=== PATIENT | female | born 1985 | race Caucasian/White ===

== ENCOUNTER 2016-10-08 10:18 | Outpatient (RCR) | payer OTHER ==
--- OUTSIDE RECORDS SUMMARY | 2016-10-08 13:28 | XMS REPORT | Continuity of Care Document ---
Author Author [facility] Address Unknown Phone Unavailable Allergies Medications Problems Date Dx Coded Attending Type Code Diagnosis Diagnosed By 11/30/2012 V74.1 TB SCREENING 11/30/2012 AMADOR ARANGO DO V74.1 TB SCREENING 05/13/2013 AMADOR ARANGO DO 244.9 HYPOTHYROIDISM, SUBCLINICAL 05/13/2013 AMADOR ARANGO DO 338.29 PAIN - CHRONIC 05/13/2013 AMADOR ARANGO DO 425.4 OTHER PRIMARY CARDIOMYOPATHIES 10/26/2015 STEPHANIE SCHULTE MD Ot I42.9 10/26/2015 STEPHANIE SCHULTE MD Ot R06.00 10/26/2015 STEPHANIE SCHULTE MD Ot R07.9 10/26/2015 STEPHANIE SCHULTE MD Ot R60.9 10/02/2016 STEPHANIE SCHULTE MD Ot I42.9 CARDIOMYOPATHY, UNSPECIFIED 10/02/2016 STEPHANIE SCHULTE MD Ot R06.00 DYSPNEA, UNSPECIFIED 10/02/2016 STEPHANIE SCHULTE MD Ot R07.9 CHEST PAIN, UNSPECIFIED 10/02/2016 STEPHANIE SCHULTE MD Ot R60.9 EDEMA, UNSPECIFIED Procedures Code [place] [address] TB TEST INTRADERMAL 11/30/2012 78918 ROUTINE VENIPUNCTURE 05/13/2013 57972 T4 FREE 2012 37997 TSH 05/13/2013 Results Encounters ACCT No. Visit Date/Time Discharge Status Pt. Type Provider Facility Loc./Unit Complaint [id number] 05/13/2013 11:05:00 05/13/2013 23: 59:59 CLS Outpatient AMADOR ARANGO DO [id number] 11/30/2012 13:51:00 Document Registration
== END 2017-01-06 | disposition home or self-care (01) ==
LOC: CARD 10:18
PROVIDERS: ATTEND Internal Medicine Cardiovascular Disease
DX: R07.9 Chest pain, unspecified (principal)
CPT/HCPCS: 93225; 93226

== ENCOUNTER 2017-09-16 11:47 | Emergency (ER) | payer SELFPAY ==
[~2017-09-16] VITALS: Ht 154.9 cm; Wt 77.1 kg
--- OUTSIDE RECORDS SUMMARY | 2017-09-16 11:52 | XMS REPORT ---
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
--- OUTSIDE RECORDS SUMMARY | 2017-09-16 11:52 | XMS REPORT ---
Author Author LAVERN ROBLERO Organization [facility] Address [address] [place] [address] Care Team Providers Care Bacteriologist Fishery Name Role Phone LAVERN ROBLERO Unavailable PROBLEMS Type Condition ICD9-CM Code [id number] Code Onset Dates Condition Status SNOMED Code Problem Post menopausal syndrome N95.1 Active 906154444 Problem Irregular heart rhythm I49.9 Active 822932774 Problem Encounter to establish care with new doctor Z71.89 Active 881318983 Problem Vitamin D deficiency E55.9 Active 04761449 Problem Second degree Mobitz I AV block I44.1 Active 60810217 Problem Dilated cardiomyopathy I42.0 Active 739019199 Problem Acquired hypothyroidism E03.9 Active 649392653 Problem Obesity (BMI 30.0-34.9) E66.9 Active 619280329984853 Problem Tobacco abuse counseling Z71.6 Active 647393629 Problem Tobacco abuse Z72.0 Active 952982301 ALLERGIES Substance Reaction Event Type Date Status Latex hives Drug Allergy Sep, Active SOCIAL HISTORY Never Assessed PLAN OF CARE Activity Details Follow Up 4 Weeks Reason:f/u labs/thyroid VITAL SIGNS Height 61 in 2016-09-26 Weight 179.0 lbs 2016-09-26 Temperature 97.4 degrees Fahrenheit 2016-09-26 Heart Rate 84 bpm 2016-09-26 Respiratory Rate 20 2016-09-26 BMI 33.82 kg/m2 2016-09-26 Blood pressure systolic 100 mmHg 2016-09-26 Blood pressure diastolic 72 mmHg 2016-09-26 MEDICATIONS No Known Medications RESULTS No Results PROCEDURES Procedure Date Ordered Result Body Site EKG, TRACING (IN-HOUSE) 2016-09-26 N/A ELECTROCARDIOGRAM, TRACING Sep 26, 2016 IMMUNIZATIONS No Known Immunizations MEDICAL (GENERAL) HISTORY Type Description Date Medical History Hypothyroidism Medical History degenerative disease lumbosacral spine Medical History osteoarthritis Medical History cardiomyopathy Medical History borderline diabetes Medical History Endometriosis-had total hysterectomy Medical History ADHD Medical History per echo on 04/2011--- mild mitral/ trivial tricuspid insufficiency- EF 40 % Surgical History total hysterectomy 06/2011 Surgical History section Surgical History Cholecystectomy Hospitalization History Surgery(s)/Childbirth(s) only
--- OUTSIDE RECORDS SUMMARY | 2017-09-16 11:53 | XMS REPORT ---
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 Problem Screening examination for pulmonary tuberculosis V74.1 Active Problem Hypothyroidism E03.9 Active Problem Other primary cardiomyopathies 425.4 Active Assessment Hypothyroidism E03.9 Active Problem Other chronic pain 338.29 Active Problem Unspecified hypothyroidism 244.9 Active Medications Medication Code System Code Instructions Start Date End Date Status Dosage Augmentin [facility] [address]-83 875-125 MG Orally every 12 hrs Aug 16, 2015 Aug 26, 2015 1 tablet Estradiol [facility] [address]-13 2 MG Orally Once a day Apr 10, 2015 1 tablet Levothyroxine Sodium [facility] [address]-86 50 MCG Orally Once a day Aug 16, 2015 1 tablet Procedures Procedure Coding System Code Date Office Visit, Est Pt., Level 3 CPT-4 51285 Aug 16, 2015 Vital Signs Date/Time: Aug 16, 2015 Temperature 97.9 F Weight 164.0 lbs Height 61 in BMI 30.98 Index Blood Pressure Diastolic 78 mmHg Blood Pressure Systolic 120 mmHg Cardiac Monitoring Heart Rate 72 bpm Results No Known Results Summary Purpose eClinicalWorks Submission
--- OUTSIDE RECORDS SUMMARY | 2017-09-16 11:53 | XMS REPORT ---
Author Author LAVERN ROBLERO Organization [facility] Address [address] [place] [address] Care Team Providers Care In Store Representative Name Role Phone OSBALDOSOLAVERN Unavailable PROBLEMS Type Condition ICD9-CM Code BRC96-CD Code Onset Dates Condition Status SNOMED Code Problem Post menopausal syndrome N95.1 Active 815041743 Problem Irregular heart rhythm I49.9 Active 307063843 Problem Encounter to establish care with new doctor Z71.89 Active 469391646 Problem Vitamin D deficiency E55.9 Active 42860532 Problem Second degree Mobitz I AV block I44.1 Active 74709102 Problem Dilated cardiomyopathy I42.0 Active 908616353 Problem Acquired hypothyroidism E03.9 Active 791407578 Problem Obesity (BMI 30.0-34.9) E66.9 Active 188762266291091 Problem Tobacco abuse counseling Z71.6 Active 715385792 Problem Tobacco abuse Z72.0 Active 063616364 ALLERGIES No Information SOCIAL HISTORY Never Assessed PLAN OF CARE VITAL SIGNS MEDICATIONS Medication Instructions Dosage Frequency Start Date End Date Duration Status Levothyroxine Sodium 25 MCG Orally Once a day 1 tablet 24h 30 Jul, 2015 30 days Active RESULTS No Results PROCEDURES No Known procedures IMMUNIZATIONS No Known Immunizations MEDICAL (GENERAL) HISTORY [...]
--- OUTSIDE RECORDS SUMMARY | 2017-09-16 11:53 | XMS REPORT | Continuity of Care Document ---
Author Author [facility] Address Unknown Phone Unavailable Allergies There is no data. Medications There is no data. Problems Date Dx Coded Attending Type Code [...] STEPHANIE SCHULTE MD Ot R60.9 EDEMA, UNSPECIFIED 10/09/2016 STEPHANIE SCHULTE MD Ot R07.9 CHEST PAIN, UNSPECIFIED 10/09/2016 STEPHANIE SCHULTE MD Ot R07.9 CHEST PAIN, UNSPECIFIED 10/10/2016 STEPHANIE SCHULTE MD Ot I42.9 CARDIOMYOPATHY, UNSPECIFIED 10/10/2016 STEPHANIE SCHULTE MD Ot R06.00 DYSPNEA, UNSPECIFIED 10/10/2016 STEPHANIE SCHULTE MD Ot R07.9 CHEST PAIN, UNSPECIFIED 10/10/2016 STEPHANIE SCHULTE MD Ot R60.9 EDEMA, UNSPECIFIED 10/10/2016 STEPHANIE SCHULTE MD Ot R07.9 CHEST PAIN, UNSPECIFIED 10/10/2016 STEPHANIE SCHULTE MD Ot R07.9 CHEST PAIN, UNSPECIFIED 10/10/2016 STEPHANIE SCHULTE MD Ot I42.9 CARDIOMYOPATHY, UNSPECIFIED 10/10/2016 STEPHANIE SCHULTE MD Ot R06.00 DYSPNEA, UNSPECIFIED 10/10/2016 STEPHANIE SCHULTE MD Ot R07.9 CHEST PAIN, UNSPECIFIED 10/10/2016 STEPHANIE SCHULTE MD Ot R60.9 EDEMA, UNSPECIFIED 11/07/2016 STEPHANIE SCHULTE MD Ot I42.9 CARDIOMYOPATHY, UNSPECIFIED 11/07/2016 STEPHANIE SCHULTE MD Ot R06.00 DYSPNEA, UNSPECIFIED 11/07/2016 STEPHANIE SCHULTE MD Ot R07.9 CHEST PAIN, UNSPECIFIED 11/07/2016 STEPHANIE SCHULTE MD Ot R60.9 EDEMA, UNSPECIFIED 11/07/2016 STEPHANIE SCHULTE MD Ot R07.9 CHEST PAIN, UNSPECIFIED 01/06/2017 STEPHANIE SCHULTE MD Ot R07.9 CHEST PAIN, UNSPECIFIED Procedures Code [place] [address] TB TEST INTRADERMAL 11/30/2012 07975 ROUTINE VENIPUNCTURE 05/13/2013 78650 T4 FREE 05/13/2013 08101 TSH 05/13/2013 Results There is no data. Encounters ACCT No. Visit Date/Time Discharge Status Pt. Type Provider Facility Loc./Unit Complaint [id number] 05/13/2013 11:05:00 05/13/2013 23:59:59 CLS Outpatient ARANGO AMADOR SMITH [id number] 11/30/2012 13:51:00 Document Registration [id number] 01/07/2017 10:00:00 01/07/2017 23:59:59 CLS Preadmit STEPHANIE SCHULTE MD [facility] CARD CHEST PAIN,PALPITATIONS [id number] 10/08/2016 10:18:00 01/06/2017 00:01:00 DIS Outpatient STEPHANIE SCHULTE MD [facility] CARD CHEST PAIN,PALPITATIONS [id number] 10/25/2015 08:42:00 10/25/2015 23:59:59 CLS Outpatient STEPHANIE SCHULTE MD [facility] CARD CARDIOMYOPATHY,DYSPNEA, CHEST PAIN
--- OUTSIDE RECORDS SUMMARY | 2017-09-16 11:53 | XMS REPORT ---
Author Author OSBALDO LAVERN Organization [facility] Address [address] [place] [address] Care Team Providers Care Office Correspondent Name Role Phone ROBLEROLAVERN Conroy Unavailable PROBLEMS Type Condition ICD9-CM Code LJJ95-AA Code Onset Dates Condition Status SNOMED Code Problem Post menopausal syndrome N95.1 Active 233247850 Problem Irregular heart rhythm I49.9 Active 539617274 Problem Encounter to establish care with new doctor Z71.89 Active 790862216 Problem Vitamin D deficiency E55.9 Active 57675856 Problem Second degree Mobitz I AV block I44.1 Active 02926442 Problem Dilated cardiomyopathy I42.0 Active 108548506 Problem Acquired hypothyroidism E03.9 Active 302308154 Problem Obesity (BMI 30.0-34.9) E66.9 Active 198629768081693 Problem Tobacco abuse counseling Z71.6 Active 698135267 Problem Tobacco abuse Z72.0 Active 720248161 ALLERGIES No Information SOCIAL HISTORY Never Assessed PLAN OF CARE VITAL SIGNS MEDICATIONS No Known Medications RESULTS Name Result Date Reference Range TSH 2016-12-26 TSH 4.900 0.450-4.500 PROCEDURES Procedure Date Ordered Result Body Site ASSAY THYROID STIM HORMONE December 26, 2016 VENIPUNCT, ROUTINE* December 26, 2016 IMMUNIZATIONS No Known Immunizations MEDICAL [...]
--- OUTSIDE RECORDS SUMMARY | 2017-09-16 11:53 | XMS REPORT ---
Author Author LAVERN ROBLERO Organization [facility] Address [address] [place] [address] Care Team Providers Care Local Area Network Systems Adminstrator Name Role Phone ROBLEROLAVERN Conroy Unavailable PROBLEMS Type Condition ICD9-CM Code EIG96-KV Code Onset Dates Condition Status SNOMED Code Problem Post menopausal syndrome N95.1 Active 523097432 Problem Irregular heart rhythm I49.9 Active 684892465 Problem Encounter to establish care with new doctor Z71.89 Active 595023639 Problem Vitamin D deficiency E55.9 Active 51836185 Problem Second degree Mobitz I AV block I44.1 Active 96621268 Problem Dilated cardiomyopathy I42.0 Active 425364764 Problem Acquired hypothyroidism E03.9 Active 287198933 Problem Obesity (BMI 30.0-34.9) E66.9 Active 112447121954968 Problem Tobacco abuse counseling Z71.6 Active 985182473 Problem Tobacco abuse Z72.0 Active 733003618 ALLERGIES No Information SOCIAL HISTORY Never Assessed PLAN OF CARE VITAL SIGNS MEDICATIONS No Known Medications RESULTS Name Result Date Reference Range TSH 2016-10-08 TSH 6.520 0.450-4.500 PROCEDURES Procedure Date Ordered Result Body Site ASSAY THYROID STIM HORMONE Oct 08, 2016 VENIPUNCT, ROUTINE* Oct 08, 2016 IMMUNIZATIONS No Known Immunizations MEDICAL (GENERAL) [...]
--- OUTSIDE RECORDS SUMMARY | 2017-09-16 11:53 | XMS REPORT ---
Author Author KERWIN GUILLEN [facility] eClinicalWorks Address Unknown Phone Unavailable Care Team Providers Care Rf Manager Name Role Phone KERWIN GUILLEN Unavailable Allergies No Known Allergies Problems Problem Type Condition ICD-9 Code Onset Dates Condition Status Problem Other chronic pain 338.29 Active Problem Unspecified hypothyroidism 244.9 Active Problem Screening examination for pulmonary tuberculosis V74.1 Active Problem Other primary cardiomyopathies 425.4 Active Medications Medication Code System Code Instructions Start Date End Date Status Dosage Levothyroxine Sodium [facility] [address]-04 100 MCG Orally Once a day 1 tablet Results No Known Results Summary Purpose eClinicalWorks Submission
--- OUTSIDE RECORDS SUMMARY | 2017-09-16 11:53 | XMS REPORT ---
Author Author LAVERN ROBLERO Organization [facility] Address [address] [place] [address] Care Team Providers Care Battery Container Finishing Hand Name Role Phone ROBLEROSO ConroyELE Unavailable PROBLEMS Type Condition ICD9-CM Code YEH64-UL Code Onset Dates Condition Status SNOMED Code Problem Post menopausal syndrome N95.1 Active 769239494 Problem Irregular heart rhythm I49.9 Active 074398671 Problem Encounter to establish care with new doctor Z71.89 Active 688926164 Problem Vitamin D deficiency E55.9 Active 15482363 Problem Second degree Mobitz I AV block I44.1 Active 86132230 Problem Dilated cardiomyopathy I42.0 Active 086405663 Problem Acquired hypothyroidism E03.9 Active 104656326 Problem Obesity (BMI 30.0-34.9) E66.9 Active 143137662558759 Problem Tobacco abuse counseling Z71.6 Active 416728530 Problem Tobacco abuse Z72.0 Active 607995176 ALLERGIES No Information SOCIAL HISTORY Never Assessed PLAN OF CARE VITAL SIGNS MEDICATIONS Medication Instructions Dosage Frequency Start Date End Date Duration Status Ergocalciferol 45189 UNIT Orally once weekly 1 capsule Sep, December, 12 weeks Active RESULTS No Results PROCEDURES No Known [...]
--- OUTSIDE RECORDS SUMMARY | 2017-09-16 11:53 | XMS REPORT ---
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 Active Assessment Hormone replacement therapy (HRT) V07.4 Active Problem Screening examination for pulmonary tuberculosis V74.1 Active Problem Other chronic pain 338.29 Active Problem Artificial menopause state 627.4 Active Assessment Routine gynecological examination V72.31 Active Assessment Breast cancer screening V76.10 Active Problem Unspecified hypothyroidism 244.9 Active Problem Other primary cardiomyopathies 425.4 Active Medications Medication Code System Code Instructions Start Date End Date Status Dosage Estradiol [facility] [address]-83 2 MG Orally Once a day Apr 10, 2015 1 tablet Levothyroxine Sodium [facility] [address]-72 100 MCG Orally Once a day 1 tablet Procedures Procedure Coding System Code Date Preventive Care Est Pt. Age 18-39 CPT-4 90927 Apr 10, 2015 Vital Signs Date/Time: Apr 10, 2015 Temperature 97.8 F Weight 175.2 lbs Height 61 in BMI 33.10 Index Blood Pressure Diastolic 74 mmHg Blood Pressure Systolic 116 mmHg Cardiac Monitoring Heart Rate 70 bpm Results No Known Results Summary Purpose eClinicalWorks Submission
--- OUTSIDE RECORDS SUMMARY | 2017-09-16 11:53 | XMS REPORT ---
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 Assessment Abdominal pain, right upper quadrant 789.01 Active Problem Unspecified hypothyroidism 244.9 Active Problem Other primary cardiomyopathies 425.4 Active Medications Medication Code System Code Instructions Start Date End Date Status Dosage Estradiol [facility] [place] [address]-03 2 MG Orally Once a day Apr 10, 2015 1 tablet Levothyroxine Sodium [facility] [place] [address]-90 100 MCG Orally Once a day 1 tablet Procedures Procedure Coding System Code Date URINALYSIS, AUTO, W/O SCOPE CPT-4 76456 Apr 27, 2015 Office Visit, Est Pt., Level 3 CPT-4 19405 Apr 27, 2015 MEASURE BLOOD OXYGEN LEVEL CPT-4 39837 Apr 27, 2015 Vital Signs Date/Time: Apr 27, 2015 Temperature 98.2 F Weight 172.2 lbs Height 61 in Oximetry 97 % Blood Pressure Diastolic 68 mmHg Blood Pressure Systolic 98 mmHg Cardiac Monitoring Heart Rate 88 bpm BMI 32.53 Index Pain Scale 7-8 1-10 Results Name Result Date Reference Range Unit Abnormality Flag UA W/CULTURE IF INDICATED (IN HOUSE) Summary Purpose eClinicalWorks Submission
--- OUTSIDE RECORDS SUMMARY | 2017-09-16 11:53 | XMS REPORT ---
Author Author AMADOR ARANGO [facility] eClinicalWorks Address Unknown Phone Unavailable Care Team Providers Care Sliver Chopper Name Role Phone AMADOR ARANGO CP Unavailable Allergies No Known Allergies Problems Problem Type Condition Code Onset Dates Condition Status Problem Screening examination for pulmonary tuberculosis V74.1 Active Problem Other chronic pain 338.29 Active Problem Artificial menopause state 627.4 Active Problem Unspecified hypothyroidism 244.9 Active Problem Other primary cardiomyopathies 425.4 Active Medications No Known Medications Results No Known Results Summary Purpose eClinicalWorks Submission
--- OUTSIDE RECORDS SUMMARY | 2017-09-16 11:53 | XMS REPORT ---
Author Author KERWIN GUILLEN [facility] eClinicalWorks Address Unknown Phone Unavailable Care Team Providers Care Manager Trading Name Role Phone KERWIN GUILLEN CP Unavailable [...] Medications Procedures Procedure Coding System Code Date Office Visit, Est Pt., Level 3 CPT-4 25630 Apr 07, 2015 Vital Signs Date/Time: Apr 07, 2015 Temperature 97.0 F Weight 175.8 lbs Height 61 in BMI 33.21 Index Blood Pressure Diastolic 70 mmHg Blood Pressure Systolic 118 mmHg Cardiac Monitoring Heart Rate 72 bpm Results No Known Results Summary Purpose eClinicalWorks Submission
--- OUTSIDE RECORDS SUMMARY | 2017-09-16 11:53 | XMS REPORT ---
Author Author OSBALDOSOLAVERN Organization [facility] Address [address] [place] [address] Care Team Providers Care Fuller Brush Man Name Role Phone ROBLEROSO ConroyELE Unavailable PROBLEMS Type Condition ICD9-CM Code RCJ28-YK Code Onset Dates Condition Status SNOMED Code Problem Post menopausal syndrome N95.1 Active 931320273 Problem Irregular heart rhythm I49.9 Active 570034332 Problem Encounter to establish care with new doctor Z71.89 Active 047676591 Problem Vitamin D deficiency E55.9 Active 90980211 Problem Second degree Mobitz I AV block I44.1 Active 46544815 Problem Dilated cardiomyopathy I42.0 Active 506265666 Problem Acquired hypothyroidism E03.9 Active 450696976 Problem Obesity (BMI 30.0-34.9) E66.9 Active 349220960081288 Problem Tobacco abuse counseling Z71.6 Active 222837296 Problem Tobacco abuse Z72.0 Active 615306764 ALLERGIES No Information SOCIAL HISTORY Never Assessed PLAN OF CARE VITAL SIGNS MEDICATIONS No Known Medications RESULTS Name Result Date Reference Range THYROID ANALYZER 2016-09-27 TSH 7.120 0.450-4.500 T4,Free (Direct) 1.01 0.82-1.77 Thyroid Peroxidase (TPO) Ab 274 0-34 Interpretive Comment A1C 2016-09-27 Hemoglobin A1c 5.2 4.8-5.6 MAGNESIUM, SERUM 2016-09-27 Magnesium, Serum 2.0 1.6-2.3 CBC 2016-09-27 WBC 5.3 3.4-10.8 RBC 4.11 3.77-5.28 Hemoglobin 12.4 11.1-15.9 Hematocrit 35.6 34.0-46.6 MCV 87 79-97 MCH 30.2 26.6-33.0 MCHC 34.8 31.5-35.7 RDW 14.2 12.3-15.4 Platelets 322 150-379 Neutrophils 50 Lymphs 40 Monocytes 7 Eos 2 Basos 1 Neutrophils (Absolute) 2.7 1.4-7.0 Lymphs (Absolute) 2.1 0.7-3.1 Monocytes(Absolute) 0.4 0.1-0.9 Eos (Absolute) 0.1 0.0-0.4 Baso (Absolute) 0.0 0.0-0.2 Immature Granulocytes 0 Immature Grans (Abs) 0.0 0.0-0.1 VITAMIN D, 25-H 2016-09-27 Vitamin D, 25-Hydroxy 14.9 30.0-100.0 LIPID PANEL 2016-09-27 Cholesterol, Total 153 100-199 Triglycerides 69 0-149 HDL Cholesterol 60 >39 VLDL Cholesterol Olaf 14 5-40 LDL Cholesterol Calc 79 0-99 CMP 2016-09-27 Glucose, Serum 93 65-99 BUN 10 6-20 Creatinine, Serum 0.88 0.57-1.00 eGFR If NonAfricn Am 88 >59 eGFR If Africn Am 102 >59 BUN/Creatinine Ratio 11 8-20 Sodium, Serum 140 134-144 Potassium, Serum 4.2 3.5-5.2 Chloride, Serum 99 96-106 Carbon Dioxide, Total 25 18-29 Calcium, Serum 9.6 8.7-10.2 Protein, Total, Serum 7.4 6.0-8.5 Albumin, Serum 4.4 3.5-5.5 Globulin, Total 3.0 1.5-4.5 A/G Ratio 1.5 1.1-2.5 Bilirubin, Total 0.7 0.0-1.2 Alkaline Phosphatase, S 110 39-117 AST (SGOT) 20 0-40 ALT (SGPT) 18 0-32 PROCEDURES Procedure Date Ordered Result Body Site ASSAY THYROID STIM HORMONE Sep 27, 2016 GLYCATED HEMOGLOBIN TEST Sep 27, 2016 VENIPUNCT, ROUTINE* Sep 27, 2016 COMPREHEN METABOLIC PANEL Sep 27, 2016 COMPLETE CBC W/AUTO DIFF WBC Sep 27, 2016 ASSAY OF MAGNESIUM Sep 27, 2016 LIPID PANEL Sep 27, 2016 ASSAY OF VITAMIN D Sep 27, 2016 IMMUNIZATIONS No Known Immunizations MEDICAL (GENERAL) [...]
--- OUTSIDE RECORDS SUMMARY | 2017-09-16 11:53 | XMS REPORT ---
Author Author STEPHANIE SCHULTE Organization [facility] Address [address] [place] [address] Care Team Providers Care Software Manager Name Role Phone MAGDIEL SCHULTEPEPITO Unavailable PROBLEMS Type Condition ICD9-CM Code HOH08-QJ Code Onset Dates Condition Status SNOMED Code Problem Post menopausal syndrome N95.1 Active 703297222 Problem Irregular heart rhythm I49.9 Active 282526788 Problem Encounter to establish care with new doctor Z71.89 Active 292655049 Problem Vitamin D deficiency E55.9 Active 32816026 Problem Second degree Mobitz I AV block I44.1 Active 76013212 Problem Dilated cardiomyopathy I42.0 Active 595970758 Problem Acquired hypothyroidism E03.9 Active 734799075 Problem Obesity (BMI 30.0-34.9) E66.9 Active 901169244934210 Problem Tobacco abuse counseling Z71.6 Active 081888139 Problem Tobacco abuse Z72.0 Active 549346222 ALLERGIES No Information SOCIAL HISTORY Never Assessed PLAN OF CARE Activity Details Follow Up 4 Weeks Reason: VITAL SIGNS Height 61 in 2016-09-27 Weight 176 lbs 2016-09-27 Heart Rate 70 bpm 2016-09-27 Respiratory Rate 24 2016-09-27 BMI 33.25 kg/m2 2016-09-27 Blood pressure systolic 102 mmHg 2016-09-27 Blood pressure diastolic 70 mmHg 2016-09-27 MEDICATIONS No Known Medications RESULTS No Results PROCEDURES Procedure Date Ordered Result Body Site HOLTER MONITOR (OUTPATIENT) 2016-09-27 N/A IMMUNIZATIONS No Known Immunizations MEDICAL (GENERAL) HISTORY [...]
--- OUTSIDE RECORDS SUMMARY | 2017-09-16 11:53 | XMS REPORT ---
Author Author LAVERN ROBLERO Organization [facility] Address [address] [place] [address] Care Team Providers Care Expressive Therapist Name Role Phone OSBALDOSOLAVERN Unavailable PROBLEMS Type Condition ICD9-CM Code ATZ40-EW Code Onset Dates Condition Status SNOMED Code Problem Post menopausal syndrome N95.1 Active 317105790 Problem Irregular heart rhythm I49.9 Active 996773179 Problem Encounter to establish care with new doctor Z71.89 Active 627768689 Problem Vitamin D deficiency E55.9 Active 91474735 Problem Second degree Mobitz I AV block I44.1 Active 99747708 Problem Dilated cardiomyopathy I42.0 Active 218366215 Problem Acquired hypothyroidism E03.9 Active 759817213 Problem Obesity (BMI 30.0-34.9) E66.9 Active 337568767649629 Problem Tobacco abuse counseling Z71.6 Active 258727000 Problem Tobacco abuse Z72.0 Active 510886238 ALLERGIES No Information SOCIAL HISTORY Never Assessed [...]
--- OUTSIDE RECORDS SUMMARY | 2017-09-16 11:53 | XMS REPORT ---
Author Author KERWIN GUILLEN Organization [employer] Address Unknown Phone Unavailable Care Team Providers Care Dope Maintenance Worker Name Role Phone KERWIN GUILLEN Unavailable Allergies [...]
--- OUTSIDE RECORDS SUMMARY | 2017-09-16 11:53 | XMS REPORT ---
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 Medications No Known Medications Procedures Procedure Coding System Code Date COMPREHEN METABOLIC PANEL CPT-4 57278 Apr 04, 2015 LIPID PANEL CPT-4 66416 Apr 04, 2015 COMPLETE CBC W/AUTO DIFF WBC CPT-4 73585 Apr 04, 2015 ELECTROCARDIOGRAM, TRACING CPT-4 18358 Apr 04, 2015 ASSAY OF FREE THYROXINE CPT-4 20548 Apr 04, 2015 ASSAY THYROID STIM HORMONE CPT-4 73551 Apr 04, 2015 VENIPUNCT, ROUTINE* CPT-4 57713 Apr 04, 2015 ASSAY OF MAGNESIUM CPT-4 57058 Apr 04, 2015 Results Name Result Date Reference Range Unit Abnormality Flag TSH W/ FREE T4 ROUTINE VENIPUNCTURE MAGNESIUM, SERUM Summary Purpose [employer] Submission
[2017-09-16 12:14] LABS: BASOPHILS # (AUTO) 0.1 10^3/uL (0.0-0.1); BASOPHILS % (AUTO) 1 % (0-10); EOSINOPHILS # (AUTO) 0.3 10^3/uL (0.0-0.3); EOSINOPHILS % (AUTO) 5 % (0-10); HEMATOCRIT 38 % (35-52); HEMOGLOBIN 12.9 G/DL (11.5-16.0); LYMPHOCYTES # (AUTO) 1.9 X 10^3 (1.0-4.0); LYMPHOCYTES % (AUTO) 30 % (12-44); MEAN CORPUSCULAR HEMOGLOBIN 30 PG (25-34); MEAN CORPUSCULAR HGB CONC 34 G/DL (32-36); MEAN CORPUSCULAR VOLUME 89 FL (80-99); MEAN PLATELET VOLUME 10.3 FL (7.4-10.4); MONOCYTES # (AUTO) 0.6 X 10^3 (0.0-1.0); MONOCYTES % (AUTO) 9 % (0-12); NEUTROPHILS # (AUTO) 3.4 X 10^3 (1.8-7.8); NEUTROPHILS % (AUTO) 55 % (42-75); PLATELET COUNT 264 10^3/uL (130-400); RED BLOOD COUNT 4.27 10^6/uL (4.35-5.85); RED CELL DISTRIBUTION WIDTH 13.7 % (10.0-14.5); WHITE BLOOD COUNT 6.2 10^3/uL (4.3-11.0)
--- NOTE | 2017-09-16 12:29 | ED Chest Pain ---
General Chief Complaint: Chest Wall/Rib Pain Stated Complaint: CP,RIGHT ARM PAIN,BACK PAIN,NAUSEA Nursing Triage Note: Pt c/o R sided chest pain that started last night. Pt states pain is worse w/ movement or taking a deep breath. Pt also reports pain in her R shoulder that radiates across back. Nursing Sepsis Screen: No Definite Risk Source: patient Exam Limitations: no limitations History of Present Illness Date Seen by Provider: Sep 16, 2017 Time Seen by Provider: 12:27 Initial Comments To ER with right-sided chest pain, right arm, back pain, nausea. This began last night while she was sitting on the couch. Pain gets worse "my blood pressure goes up" and when she moves or deep breathes. No cough. Timing/Duration: 24 hours Severity/Quality: moderate Activities at Onset: none, rest ASA po DESKTOP MANAGER: No NTG SL DESKTOP MANAGER: No Allergies and Home Medications Allergies Coded Allergies: No Known Drug Allergies (Unverified , 09/16/17) Home Medications Unable to Obtain Active Prescriptions or Reported Meds Review of Systems Constitutional: see HPI, No chills EENTM: No Symptoms Reported Respiratory: No Symptoms Reported Cardiovascular: See HPI, Chest Pain, Denies Edema, Denies Irregular Heart Rate , Denies Lightheadedness, Denies Palpitations, Denies Syncope Gastrointestinal: No Symptoms Reported Genitourinary: No Symptoms Reported Musculoskeletal: no symptoms reported Skin: no symptoms reported Psychiatric/Neurological: No Symptoms Reported Endocrine: No Symptoms Reported Hematologic/Lymphatic: No Symptoms Reported Past Sncszsv-Ayktpg-Ampvgd Hx Patient Social History Alcohol Use: Denies Use Recreational Drug Use: No Smoking Status: Former Smoker Former Smoker, Quit: Jun 18, 2017 Recent Foreign Travel: No Contact w/Someone Who Travel: No Recent Infectious Disease Expo: No Recent Hopitalizations: No Seasonal Allergies Seasonal Allergies: No Surgeries History of Surgeries: Yes Surgeries: Section, Gallbladder, Hysterectomy Respiratory History of Respiratory Disorde: No Cardiovascular History of Cardiac Disorders: Yes (TACHYCARDIA) Neurological History of Neurological Disord: No Genitourinary History of Genitourinary Disor: No Gastrointestinal History of Gastrointestinal Di: No Musculoskeletal History of Musculoskeletal Dis: No Endocrine History of Endocrine Disorders: Yes Endocrine Disorders: Hypothyroidsim HEENT History of HEENT Disorders: No Cancer History of Cancer: No Psychosocial History of Psychiatric Problem: No Integumentary History of Skin or Integumenta: No Blood Transfusions History of Blood Disorders: No Physical Exam Vital Signs Vital Sign - Last 12Hours 09/16/17 11:50 Temp 98.0 Pulse 78 Resp 18 B/P (MAP) 119/87 (98) Pulse Ox 100 O2 Delivery Room Air Capillary Refill : Less Than 3 Seconds General Appearance: No Apparent Distress, WD/WN HEENT: PERRL/EOMI, TMs Normal Neck: Full Range of Motion, Normal Inspection Respiratory: No Accessory Muscle Use, No Respiratory Distress Cardiovascular: Regular Rate, Rhythm, Normal Peripheral Pulses, Other (heart rate 89 sinus without ectopy, blood pressure 119/82, oxygen saturation 100% on room air) Gastrointestinal: Normal Bowel Sounds, Non Tender, Soft Extremity: Normal Capillary Refill, Normal Inspection Neurologic/Psychiatric: Alert, Oriented x3, No Motor/Sensory Deficits Skin: Normal Color, Warm/Dry Progress/Results/Core Measures Results/Orders Lab Results Laboratory Tests Test 09/16/17 12:05 Range/Units White Blood Count 6.2 4.3-11.0 10^3/uL Red Blood Count 4.27 L 4.35-5.85 10^6/uL Hemoglobin 12.9 11.5-16.0 G/DL Hematocrit 38 35-52 % Mean Corpuscular Volume 89 80-99 FL Mean Corpuscular Hemoglobin 30 25-34 PG Mean Corpuscular Hemoglobin Concent 34 32-36 G/DL Red Cell Distribution Width 13.7 10.0-14.5 % Platelet Count 264 130-400 10^3/uL Mean Platelet Volume 10.3 7.4-10.4 FL Neutrophils (%) (Auto) 55 42-75 % Lymphocytes (%) (Auto) 30 12-44 % Monocytes (%) (Auto) 9 0-12 % Eosinophils (%) (Auto) 5 0-10 % Basophils (%) (Auto) 1 0-10 % Neutrophils # (Auto) 3.4 1.8-7.8 X 10^3 Lymphocytes # (Auto) 1.9 1.0-4.0 X 10^3 Monocytes # (Auto) 0.6 0.0-1.0 X 10^3 Eosinophils # (Auto) 0.3 0.0-0.3 10^3/uL Basophils # (Auto) 0.1 0.0-0.1 10^3/uL Sodium Level 138 135-145 MMOL/L Potassium Level 3.8 3.6-5.0 MMOL/L Chloride Level 104 98-107 MMOL/L Carbon Dioxide Level 26 21-32 MMOL/L Anion Gap 8 5-14 MMOL/L Blood Urea Nitrogen 7 7-18 MG/DL Creatinine 0.84 0.60-1.30 MG/DL Estimat Glomerular Filtration Rate > 60 BUN/Creatinine Ratio 8 Glucose Level 110 H 70-105 MG/DL Calcium Level 9.2 8.5-10.1 MG/DL Total Bilirubin 0.6 0.1-1.0 MG/DL Aspartate Amino Transf (AST/SGOT) 19 5-34 U/L Alanine Aminotransferase (ALT/SGPT) 17 0-55 U/L Alkaline Phosphatase 128 40-136 U/L Total Protein 7.7 6.4-8.2 GM/DL Albumin 4.3 3.2-4.5 GM/DL My Orders Orders - CLARI VELÁSQUEZ APRN Cbc With Automated Diff (09/16/17 12:01) Comprehensive Metabolic Panel (09/16/17 12:01) Chest Pa/Lat (2 View) (09/16/17 12:01) Ekg Tracing (09/16/17 12:01) Vital Signs/I&O Vital Sign - Last 12Hours 09/16/17 11:50 Temp 98.0 Pulse 78 Resp 18 B/P (MAP) 119/87 (98) Pulse Ox 100 O2 Delivery Room Air Blood Pressure Mean: 98 Progress Note : Progress Note 1318-I did discuss with her the pain which she reported to the inspector technician. This pain is to the right upper outer chest. This was exquisitely tender to palpation and x-ray tech reports patient fell over when putting her pullover back on. There is a quarter-sized area that is exquisitely tender but there is no overlying rash, no palpable nodule or lump, no ecchymosis or erythema. Departure Impression Impression: Primary Impression: Chest wall pain Disposition: HOME, SELF-CARE Condition: Stable Departure-Patient Inst. Decision time for Depature: 12:58 Referrals: AMADOR ARANGO DO (PCP) Primary Care Physician LAVERN ROBLERO APRN (Family) Primary Care Physician Patient Instructions: Chest Pain Add. Discharge Instructions: 1. Follow-up with your doctor this week for further evaluation if the pain persists. 2. Return to ER for any worsening pain, shortness of breath or other concerns. All discharge instructions reviewed with patient and/or family. Voiced understanding. Scripts Unable to Obtain Active Prescriptions or Reported Meds CLARI VELÁSQUEZ APRN Sep 16, 2017 12:29
[2017-09-16 12:37] LABS: ALANINE AMINOTRANSFERASE 17 U/L (0-55); ALBUMIN 4.3 GM/DL (3.2-4.5); ALKALINE PHOSPHATASE 128 U/L (40-136); BILIRUBIN,TOTAL 0.6 MG/DL (0.1-1.0); BUN/CREATININE RATIO 8; CALCIUM 9.2 MG/DL (8.5-10.1); CARBON DIOXIDE 26 MMOL/L (21-32); CHLORIDE 104 MMOL/L (98-107); CREATININE SERUM 0.84 MG/DL (0.60-1.30); GFR ESTIMATED > 60; GLUCOSE 110 MG/DL (70-105); POTASSIUM 3.8 MMOL/L (3.6-5.0); SODIUM 138 MMOL/L (135-145); TOTAL PROTEIN 7.7 GM/DL (6.4-8.2)
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
[2017-09-16 13:31] VITALS: BP 109/68
== END 2017-09-16 13:31 | disposition home or self-care (01) ==
LOC: EDUNIT# 11:47 → ER 11:49
DX: R07.89 Other chest pain (principal); E03.9 Hypothyroidism, unspecified; Z87.891 Personal history of nicotine dependence; Z90.710 Acquired absence of both cervix and uterus; Z87.59 Personal history of other complications of pregnancy, childbirth and the puerperium
CPT/HCPCS: 36415; 71046; 80053; 85025; 93005

== ENCOUNTER → 2017-10-30 | Outpatient (CLI) | payer SELFPAY | LOC: CARD 12:21 | PROVIDERS: ATTEND Internal Medicine Cardiovascular Disease | DX: I44.1 Atrioventricular block, second degree (principal); I42.9 Cardiomyopathy, unspecified; I34.0 Nonrheumatic mitral (valve) insufficiency; R07.9 Chest pain, unspecified; R00.2 Palpitations | CPT/HCPCS: 93225; 93226 ==

== ENCOUNTER → 2017-10-30 | Outpatient (CLI) | payer OTHER ==
--- NOTE | 2017-10-30 14:21 | Diagnostic Imaging Report ---
Procedure: Bilateral limited ultrasound of the breast. Indication: Breast pain. By history. the patient has pain in both axilla. She also complains of lumps in each axilla. The diagnostic mammogram performed prior to this study failed to show any sign of malignancy or for an acute abnormality. Findings: On this exam there is no discrete solid or cystic mass evident within either breast. There is a small 1.4 cm benign-appearing lymph node in the left axilla. There is no sign of an abscess within either breast either. Impression: There is no evidence for malignancy or for an acute abnormality of either axilla. Clinical followup is recommended. ACR BI-RADS Category 1: Negative. Result letter will be mailed to the patient. Note: At least 10% of breast cancer is not imaged by mammography. Dictated by: Dictated on workstation # [id number]
--- NOTE | 2017-10-30 19:37 | Diagnostic Imaging Report ---
Digital mammogram bilateral diagnostic. INDICATION: Bilateral breast pain and breast lumps. This is the patient's baseline study. At this time, she complains of pain and lumps in each breast. The current study was also evaluated with a Computer Aided Detection (CAD) system. FINDINGS: There are scattered fibroglandular densities in both breasts which could obscure a lesion. There is no primary or secondary sign of malignancy noted. There is no abnormality to account for the patient's breast pain either. IMPRESSION: 1. There is no evidence of malignancy or for an acute abnormality. 2. Ultrasound of both breasts is pending for further study. ACR BI-RADS Category 0: Incomplete. (Needs additional imaging evaluation). Result letter will be mailed to the patient. Note: At least 10% of breast cancer is not imaged by mammography. Dictated by: Dictated on workstation # [id number]
== END ==
LOC: RAD 13:06
PROVIDERS: ATTEND Nurse Practitioner Family
DX: N63.10 Unspecified lump in the right breast, unspecified quadrant (principal); N63.20 Unspecified lump in the left breast, unspecified quadrant
CPT/HCPCS: 76642; 77066

== ENCOUNTER 2021-04-18 10:13 | Emergency (ER) | payer OTHER ==
[~2021-04-18] VITALS: Ht 160 cm; Wt 95.0 kg
[2021-04-18] MEDS ORDERED: IBUPROFEN 600 MG (MOTRIN) TAB PO ONE (11:00)
[2021-04-18] MEDS ORDERED: ONDANSETRON 4 MG (ZOFRAN) ORAL DISSOLVE TAB PO STA (11:00)
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
[2021-04-18] MEDS ORDERED: ACHD5005 PO (12:03)
[2021-04-18] MEDS ORDERED: TETANUS,DIPTH,PERTUSS P/F (BOOSTRIX) 0.5 ML VIAL IM ONE (12:15)
[2021-04-18 12:43] VITALS: BP 135/78
== END 2021-04-18 12:44 | disposition home or self-care (01) ==
LOC: EDUNIT# 10:13 → ER 10:15
DX: S61.412A Laceration without foreign body of left hand, initial encounter (principal); S49.92XA Unspecified injury of left shoulder and upper arm, initial encounter; Z23 Encounter for immunization; V89.2XXA Person injured in unspecified motor-vehicle accident, traffic, initial encounter
CPT/HCPCS: 71045; 73030; 99283; A4565; 90715